=== PATIENT | female | born 1965 | race Hispanic/Latino ===

== ENCOUNTER 2018-01-22 19:57 | Observation (INO) | payer OTHER, SELFPAY ==
[2018-01-22] MEDS ORDERED: Albuterol-Ipratrop 3 mg / 0.5 (3 ml) UD IH STA (20:06)
--- NOTE | 2018-01-22 20:15 | ED PDOC ---
Arrival/HPI - General Chief Complaint: Shortness Of Breath Time Seen by Provider: 01/22/18 19:59 Historian: Patient, EMS - History of Present Illness Time/Duration: 1 hour Symptom Onset: Sudden Symptom Course: Improving Severity Level: Moderate Activities at Onset: Rest Associated Symptoms (Text): 01/22/18 20:11 Patient reports that she was getting ready to go to bed and lie down and go to sleep and developed acute shortness of breath. There is a history of asthma. She took her inhaler with minimal relief. She then called 911 and presents to the emergency department. She denies chest pain. No cough congestion or URI. No fever or chills. No abdominal pain nausea or vomiting. She was seen in the emergency department for similar complaints approximately 3 weeks ago. Past Medical History - Cardiac Hx Cardiac Disorders: Yes Hx Hypertension: Yes - Pulmonary Hx Respiratory Disorders: Yes Hx Asthma: Yes - Endocrine/Metabolic Hx Endocrine Disorders: Yes Hx Diabetes Mellitus Type 2: Yes Hx Hypothyroidism: Yes - Psychiatric Hx Substance Use: No - Anesthesia Hx Anesthesia: Yes Hx Anesthesia Reactions: No Family/Social History - Physician Review Nursing Documentation Reviewed: Yes Family/Social History: Unknown Family HX Smoking Status: Never Smoked Hx Alcohol Use: No Hx Substance Use: No Allergies/Home Meds Allergies/Adverse Reactions: Allergies aspirin Allergy (Verified 01/22/18 19:59) RASH Penicillins Allergy (Verified 01/22/18 19:59) RASH Home Medications: Home Meds Medication Instructions Recorded Confirmed metFORMIN [glucOPHAGE] 2 tab PO BID 01/22/18 01/22/18 Review of Systems - Physician Review All systems were reviewed & negative as marked: Yes - Review of Systems Constitutional: Normal ENT: Normal Respiratory: SOB. absent: Cough, Sputum Cardiovascular: Normal. absent: Chest Pain, Palpitations, Syncope Gastrointestinal: absent: Abdominal Pain, Diarrhea, Vomiting Genitourinary Female: Normal Neurological: Normal Physical Exam Vital Signs Temp Pulse Resp BP Pulse Ox 01/22/18 22:02 124 H 22 130/67 98 01/22/18 20:01 97.5 F L 121 H 20 136/77 100 Temperature: Afebrile Blood Pressure: Normal Pulse: Tachycardic Respiratory Rate: Normal Appearance: Positive for: Well-Appearing, Non-Toxic, Comfortable Pain Distress: None Mental Status: Positive for: Alert and Oriented X 3 - Systems Exam Head: Present: Atraumatic, Normocephalic Pupils: Present: PERRL Extroacular Muscles: Present: EOMI Conjunctiva: Present: Normal Mouth: Present: Moist Mucous Membranes Pharnyx: No: ERYTHEMA, EXUDATE, TONSILS ENLARGED Neck: Present: Normal Range of Motion Respiratory/Chest: Present: Clear to Auscultation, Good Air Exchange, Decreased Breath Sounds. No: Respiratory Distress, Accessory Muscle Use, Wheezes, Rales, Retracting, Rhonchi, Tachypneic Cardiovascular: Present: Regular Rate and Rhythm, Normal S1, S2, Tachycardic. No: Murmurs Abdomen: No: Tenderness, Distention, Peritoneal Signs, Rebound, Guarding Upper Extremity: Present: Normal Inspection. No: Cyanosis, Edema Lower Extremity: Present: Normal Inspection. No: Edema, CALF TENDERNESS Neurological: Present: GCS=15, CN II-XII Intact, Speech Normal, Motor Func Grossly Intact Skin: Present: Warm, Dry, Normal Color. No: Rashes Psychiatric: Present: Alert, Oriented x 3, Normal Insight, Normal Concentration Medical Decision Making ED Course and Treatment: 01/22/18 20:21 EKG shows sinus tachycardia rate approximately 115 with poor R-wave progression and no acute ST or T-wave changes 01/22/18 21:07 Patient reports that the initial DuoNeb did help her breathing. Her lungs remained clear with no wheezing. She is requesting an additional treatment. Additional albuterol has been ordered for her. He also reports that she is always tachycardic. 01/22/18 21:39 Patient continues to complain of shortness of breath, though her lung sounds are clear and her pulse oximetry is 100% on room air. Her x-ray shows no acute findings. Her BNP and d-dimer were normal. She is now stating that her chest feels tight and as if someone were sitting on it. She reports that this is the feeling she is having since she first became short of breath. There is a history of diabetes and hypertension. No cardiac history. She is a never smoker. The second treatment did not help her much. She is allergic to aspirin. We will try nitroglycerin and make arrangements for telemetry observation. 01/22/18 21:57 No change with nitroglycerin. 01/22/18 22:02 Dr. Acuña, who covers for , refers to the hospitalist for admission. I spoke with the medical transcription radiology and the house physician for telemetry observation. - Lab Interpretations Lab Results: 01/22/18 20:20 01/22/18 20:20 Lab Results 01/22/18 20:20: Sodium 136, Potassium 3.2 L, Chloride 97 L, Carbon Dioxide 22, Anion Gap 19, BUN 24 H, Creatinine 0.9, Est GFR ( Amer) > 60, Est GFR ( Non-Af Amer) > 60, Random Glucose 242 H, Calcium 9.3, Magnesium 1.3 L, Total Bilirubin 0.7, AST 38 H D, ALT 49, Alkaline Phosphatase 66, Lactate Dehydrogenase 464, Total Creatine Kinase 68, Troponin I < 0.01, NT-Pro-B Natriuret Pep 27.9, Total Protein 7.3, Albumin 4.5, Globulin 2.8, Albumin/ Globulin Ratio 1.6 01/22/18 20:20: D-Dimer, Quantitative < 200 01/22/18 20:20: WBC 11.0, RBC 4.35, Hgb 13.0, Hct 38.0, MCV 87.4, MCH 29.9, MCHC 34.2, RDW 13.3, Plt Count 366, MPV 9.6, Gran % 43.8 L, Lymph % (Auto) 45.7 H, Monroe % (Auto) 8.0 H, Eos % (Auto) 2.1, Baso % (Auto) 0.4, Gran # 4.81, Lymph # (Auto) 5.0 H, Monroe # (Auto) 0.9 H, Eos # (Auto) 0.2, Baso # (Auto) 0.04 - RAD Interpretation Radiology Orders: 01/22/18 20:07 CHEST PORTABLE [RAD] Stat Chest 1 view shows no infiltrate effusion or cardiomegaly. Payroll Benefits Clerk: ED Physician - Medication Orders Current Medication Orders: Discontinued Medications Albuterol Sulfate (Albuterol 0.083% Inhal Lissy (2.5 Mg/3 Ml) Ud) 2.5 mg INH STAT STA Stop: 01/22/18 21:08 Last Admin: 01/22/18 21:11 Dose: 2.5 mg Albuterol/Ipratropium (Duoneb 3 Mg/0.5 Mg (3 Ml) Ud) 3 ml IH STAT STA Stop: 01/22/18 20:07 Last Admin: 01/22/18 20:11 Dose: 3 ml Nitroglycerin (Nitrostat Sl Tab) 0.4 mg SL STAT STA Stop: 01/22/18 21:40 Last Admin: 01/22/18 21:42 Dose: 0.4 mg Potassium Chloride (K-Dur 20 Meq Er Tab) 20 meq PO STAT STA Stop: 01/22/18 21:05 Last Admin: 01/22/18 21:11 Dose: 20 meq Disposition/Present on Arrival - Present on Arrival Any Indicators Present on Arrival: No History of DVT/PE: No History of Uncontrolled Diabetes: No Urinary Catheter: No History of Decub. Ulcer: No History Surgical Site Infection Following: None - Disposition Have Diagnosis and Disposition been Completed?: Yes Diagnosis: Chest pain, Dyspnea, Tachycardia, Hypokalemia, Hyperglycemia, Hyperglycemia due to type 2 diabetes mellitus Disposition: HOSPITALIZED Disposition Time: 22:03 Patient Plan: Observation, Telemetry Patient Problems: Current Active Problems Problem Status Onset Chest pain Acute Dyspnea Acute Condition: GOOD Discharge Instructions (ExitCare): Chest Pain (ED) Referrals: Nita Hobbs DO [Primary Care Provider] - Follow up with primary Forms: [facility] ([place])
[2018-01-22 20:42] LABS: ALB/GLOB RATIO 1.6 (1.1-1.8); ALBUMIN 4.5 g/dL (3.0-4.8); ALT/SGPT 49 U/L (7-56); AST/SGOT 38 U/L (14-36); BLOOD UREA NITROGEN 24 mg/dL (7-21); CALCIUM 9.3 mg/dL (8.4-10.5); GFR AFRICAN-AMERICAN > 60; GFR NON-AFRICAN AMERICAN > 60
[2018-01-22 20:52] LABS: B-TYPE NATRIURETIC PEPTIDE 27.9 pg/mL (0-450); TROPONIN I < 0.01 ng/mL
[2018-01-22 20:55] LABS: BASO # 0.04 K/mm3 (0.0-2.0); BASO % 0.4 % (0.0-3.0); EOS # 0.2 (0.0-0.7); EOS % 2.1 % (1.5-5.0); GRAN # 4.81 (1.4-6.5); GRAN % 43.8 % (50.0-68.0); LYMPH % 45.7 % (22.0-35.0); MEAN CELL VOLUME 87.4 fl (80.0-105.0); MEAN CORPUSCULAR HEMOGLOBIN 29.9 pg (25.0-35.0); MEAN CORPUSCULAR HGB CONC 34.2 g/dl (31.0-37.0); MEAN PLATELET VOLUME 9.6 fl (7.0-11.0); MONO # 0.9 (0.1-0.6); RBC 4.35 10^6/uL (3.5-6.1); RED CELL DISTRIBUTION WIDTH 13.3 % (11.5-14.5)
[2018-01-22] MEDS ORDERED: Potassium Chloride 20 mEq ER Tab PO STA (21:04)
[2018-01-22] MEDS ORDERED: Albuterol 0.083% Inhal Sol (2.5 mg/3 mL) UD INH STA (21:07)
[2018-01-22] MEDS ORDERED: Nitroglycerin 2% Ointment Foilpak UD TOP STA (22:05)
[2018-01-22] MEDS ORDERED: Nitroglycerin 2% Ointment Foilpak UD TOP ONE (22:06)
[2018-01-22] MEDS ORDERED: Potassium Chloride 40 mEq/30 ml LIQ UD PO ONE (23:09)
[2018-01-22] MEDS ORDERED: Levalbuterol 1.25 MG/3 ML Inhal Soln UD IH PRN (23:44)
[2018-01-23] MEDS ORDERED: Magnesium 2 gm/50 ml NS 2 GM/50 ML BAG IVPB ONE (00:09)
--- NOTE | 2018-01-23 00:51 | CP.PCM.HP ---
<Samuel Grider - Last Filed: 01/23/18 02:33> History of Present Illness - History of Present Illness History of Present Illness: PGY-1 Admission History and Physical for Dr. Cuadra Ms. Smith is a 52 year old female with PMH of asthma, DM2, HTN, Lois's thyroiditis, and R knee osteoarthritis who presented to ED with chest pain and what she believed was an asthma exacerbation. She takes albuterol nebulizers. She states that she feels a pressure-type pain in her mid-sternal chest. The chest pain is exacerbated by breathing in and improved with nitroglycerin ointment. Patient admits to a history of having an elevated heart rate. She states that she's been told she has a high heart rate since she was a child. She states that in 2015 they "went down and looked at my heart with a camera but didn't find anything." She admits to some mild shortness of breath at rest but her chest tightness bothers her more currently. She denies fever, chills, headache, dizziness, palpitations, cough, wheezing, nausea, vomiting, abdominal pain, and diarrhea. PMH: type 2 diabetes, HTN, Lois's thyroiditis, R knee osteoarthritis Medications: see EMR, RN confirmed Allergies: Aspirin, penicillin PSHx: Total R knee replacement Fam Hx: denies Social Hx: denies tobacco, alcohol, or drug use. Currently lives independently with family PMD: Dr. Hobbs Present on Admission - Present on Admission Any Indicators Present on Admission: No History of DVT/PE: No History of Uncontrolled Diabetes: No Urinary Catheter: No Decubitus Ulcer Present: No Review of Systems - Review of Systems Review of Systems: A 12 point ROS was reviewed with patient and negative except as stated in HPI Past Patient History - Past Social History Smoking Status: Never Smoked - CARDIAC Hx Cardiac Disorders: Yes Hx Hypertension: Yes - PULMONARY Hx Respiratory Disorders: Yes Hx Asthma: Yes - NEUROLOGICAL Hx Neurological Disorder: No - HEENT Hx HEENT Problems: No - RENAL Hx Chronic Kidney Disease: No - ENDOCRINE/METABOLIC Hx Endocrine Disorders: Yes Hx Diabetes Mellitus Type 2: Yes Hx Hypothyroidism: Yes Other/Comment: Lois disease - HEMATOLOGICAL/ONCOLOGICAL Hx AIDS: No - INTEGUMENTARY Hx Dermatological Problems: No - MUSCULOSKELETAL/RHEUMATOLOGICAL Hx Fractures: Yes (right knee) - GASTROINTESTINAL Hx Gastrointestinal Disorders: No - GENITOURINARY/GYNECOLOGICAL Hx Genitourinary Disorders: No - PSYCHIATRIC Hx Psychophysiologic Disorder: Yes Hx Anxiety: Yes - SURGICAL HISTORY Hx Surgeries: Yes Other/Comment: Right knee repair - ANESTHESIA Hx Anesthesia: Yes Hx Anesthesia Reactions: No Meds Allergies/Adverse Reactions: Allergies Allergy/AdvReac Type Severity Reaction Status Date / Time aspirin Allergy RASH Verified 01/22/18 19:59 Penicillins Allergy RASH Verified 01/22/18 19:59 Physical Exam - Constitutional Appears: No Acute Distress Additional comments: In general, she appears pleasant, alert and awake without acute distress - Head Exam Head Exam: ATRAUMATIC, NORMAL INSPECTION, NORMOCEPHALIC - Eye Exam Eye Exam: EOMI, Normal appearance, PERRL - ENT Exam ENT Exam: Mucous Membranes Moist - Neck Exam Neck exam: Positive for: Normal Inspection - Respiratory Exam Respiratory Exam: Clear to Auscultation Bilateral. absent: Accessory Muscle Use , Chest Wall Tenderness, Rales, Rhonchi, Wheezes, Respiratory Distress - Cardiovascular Exam Cardiovascular Exam: REGULAR RHYTHM, RRR, Rubs, +S1, +S2. absent: Diastolic murmur, Gallop, +S4, Systolic Murmur - GI/Abdominal Exam GI & Abdominal Exam: Normal Bowel Sounds, Soft. absent: Distended, Guarding, Rebound - Extremities Exam Extremities exam: Positive for: normal inspection. Negative for: calf tenderness, pedal edema - Neurological Exam Neurological exam: Alert, Oriented x3 - Psychiatric Exam Psychiatric exam: Normal Affect, Normal Mood - Skin Skin Exam: Dry, Intact, Normal Color, Warm Results - Vital Signs Recent Vital Signs: Last Vital Signs Temp 97.5 F L 01/22/18 20:01 Pulse 125 H 01/22/18 23:05 Resp 20 01/22/18 23:05 BP 132/79 01/22/18 23:05 Pulse Ox 97 01/22/18 23:05 - Labs Result Diagrams: 01/22/18 20:20 01/22/18 20:20 Assessment & Plan - Assessment and Plan (Free Text) Assessment: Ms. Smith is a 52 year old female with PMH of asthma, DM2, HTN, Lois's thyroiditis, and R knee osteoarthritis who presented with chest pain and SOB. She is being admitted for evaluation and treatment of chest pain to rule out acute coronary syndrome and asthma exacerbation. 1. Chest pain -Will rule out acute coronary syndrome -CXR reviewed by myself, no signs of consolidation, pulmonary congestion, or other acute etiology -ECG with sinus tachycardia at rate of 117 with poor progression of R waves noted -Repeat ECG in AM -Initial troponin negative, continue to trend Q6h x 2 -Echo ordered -Nitroglycerin ointment Q6h -Start Lopressor one stat dose of 25 mg given and then 25 mg BID -Lopressor will provide a cardioprotective effect and help with the sinus tachycardia -Cardiology consulted 2. Asthma exacerbation -Xopenex by nebulizer Q6 scheduled and PRN ordered 3. Electrolyte abnormalities -Hypokalemia and hypomagnesemia -Repleted PO KCl and IV MgSO4 -Continue to monitor, will repeat in AM -Replete as needed 4. Hx of Lois's thyroiditis -TSH, T3, T4 ordered 5. Hx of Type 2 diabetes mellitus -Hold metformin -ISS and accuchecks ACHS -Hemoglobin A1c pending GI/DVT Prophylaxis: Protonix and heparin Case and plan reviewed with Dr. Cuadra attending. Samuel Grider DO IM Resident PGY-1 <Kia Cuadra - Last Filed: 01/23/18 02:37> Results - Vital Signs Recent Vital Signs: Last Vital Signs Temp 97.5 F L 01/22/18 20:01 Pulse 125 H 01/23/18 02:00 Resp 20 01/22/18 23:05 BP 132/79 01/22/18 23:05 Pulse Ox 97 01/22/18 23:05 - Labs Result Diagrams: 01/22/18 20:20 01/22/18 20:20 Attending/Attestation - Attestation I have personally seen and examined this patient.: Yes I have fully participated in the care of the patient.: Yes I have reviewed all pertinent clinical information: Yes Notes (Text): 01/23/18 02:34 Patient seen with resident by bedside. Agree with assessment and plan of treatment.
[2018-01-23] MEDS ORDERED: Nitroglycerin 2% Ointment Foilpak UD TOP SCH ×2 (01:20)
[2018-01-23] MEDS: Levalbuterol 1.25 MG/3 ML Inhal Soln UD IH SCH ×4 (02:00→21:25)
[2018-01-23 04:10] VITALS: BMI 33.5
[2018-01-23] MEDS: Pantoprazole 40 mg EC Tab PO SCH (05:10)
[2018-01-23 07:10] LABS: BASO # 0.02 K/mm3 (0.0-2.0); BASO % 0.2 % (0.0-3.0); GRAN # 7.48 (1.4-6.5); GRAN % 79.6 % (50.0-68.0); HEMOGLOBIN 12.4 g/dL (12.0-16.0); LYMPH # 1.5 (1.2-3.4); LYMPH % 16.4 % (22.0-35.0); MEAN CELL VOLUME 87.3 fl (80.0-105.0); MEAN CORPUSCULAR HEMOGLOBIN 30.2 pg (25.0-35.0); MEAN CORPUSCULAR HGB CONC 34.5 g/dl (31.0-37.0); MEAN PLATELET VOLUME 9.5 fl (7.0-11.0); MONO # 0.4 (0.1-0.6); MONO % 3.8 % (1.0-6.0); RBC 4.11 10^6/uL (3.5-6.1); RED CELL DISTRIBUTION WIDTH 13.6 % (11.5-14.5); WHITE BLOOD COUNT 9.4 10^3/ul (4.5-11.0)
[2018-01-23 07:26] LABS: LDL CHOLESTEROL 97 mg/dL (0-129)
[2018-01-23 07:32] LABS: FREE T4 1.31 ng/dL (0.78-2.19)
[2018-01-23 07:33] LABS: ALB/GLOB RATIO 1.5 (1.1-1.8); ALBUMIN 4.3 g/dL (3.0-4.8); ALT/SGPT 52 U/L (7-56); AST/SGOT 26 U/L (14-36); BLOOD UREA NITROGEN 16 mg/dL (7-21); CALCIUM 9.4 mg/dL (8.4-10.5); GFR AFRICAN-AMERICAN > 60; GFR NON-AFRICAN AMERICAN > 60; HDL CHOLESTEROL 59 mg/dL (29-60)
[2018-01-23] MEDS: Insulin Lispro (humaLOG) MEDIUM Coverage SC SCH ×4 (07:38→21:49)
[2018-01-23 07:46] LABS: T3 1.14 ng/mL (0.97-1.69)
--- NOTE | 2018-01-23 09:20 | CARD ---
APPROVED REPORT EKG Measurement Heart [id number] <Conclusion> Sinus tachycardia Q in lll
--- NOTE | 2018-01-23 09:30 | CARD ---
APPROVED REPORT EKG Measurement Heart [id number] <Conclusion> Normal sinus rhythm Q in lll Normal ECG No change
--- NOTE | 2018-01-23 09:48 | RAD ---
HISTORY: Shortness of breath. COMPARISON: No prior. FINDINGS: LUNGS: No active pulmonary disease. PLEURA: No significant pleural effusion identified, no pneumothorax apparent. CARDIOVASCULAR: Normal. OSSEOUS STRUCTURES: No significant abnormalities. VISUALIZED UPPER ABDOMEN: Normal. OTHER FINDINGS: None. IMPRESSION: No active disease.
[2018-01-23] MEDS ORDERED: Enoxaparin 40 mg Syringe SC SCH (10:00)
[2018-01-23] MEDS ORDERED: Nitroglycerin 2% Ointment Foilpak UD TOP PRN (11:16)
[2018-01-23 13:33] VITALS: RESP 20
--- NOTE | 2018-01-23 20:04 | CON ---
DATE: 01/23/2018 CARDIOLOGY CONSULTATION REASON FOR CONSULTATION: Shortness of breath. HISTORY OF PRESENT ILLNESS: Patient is a 52-year-old female who has history of hypertension, diabetes mellitus, history of bronchial asthma, presented because of shortness of breath which she attributed to asthma. Patient took her inhaler with minimal relief and called 911. The patient denies any resistant chest pain. The patient stated that she was evaluated by her lock setter in 2014 and underwent a stress test which was negative. SOCIAL HISTORY: Patient is a nonsmoker, nondrinker. She has a dog as a pet at home; she says he does not shed his hair. REVIEW OF SYSTEMS: No nausea or vomiting. No fever or chills. No dizziness or syncope. MEDICATIONS: Heparin 5000 units every 12 hours, Lipitor 40 mg once a day, Lopressor 25 mg twice a day, Protonix 40 mg p.o. once a day, Xopenex inhaler every 2 hours p.r.n PAST MEDICAL HISTORY: Hypertension, diabetes mellitus, and bronchial asthma. PHYSICAL EXAMINATION: GENERAL: The patient is a middle-aged female who does not appear to be in acute distress. VITAL SIGNS: Blood pressure 124/69, heart rate 90, respirations 18, temperature 98.7. HEENT: Normocephalic. NECK: No JVD. CHEST: Clear. HEART: S1 and S2 are regular. ABDOMEN: Soft. EXTREMITIES: No edema. No calf tenderness. DIAGNOSTIC STUDIES: EKG yesterday revealed sinus tachycardia at the rate of 117. Today's EKG revealed normal sinus rhythm at the rate of 95. Chest x-ray revealed no active disease. LABORATORY DATA: Today's hemoglobin and hematocrit are 12.4 and 35.9, white count and platelet count are within normal limits. SMA-7: Today's sodium 138, potassium 4.5, chloride 99, CO2 of 28, glucose 118, BUN 16, creatinine 0.7. Three sets of troponins are negative. TSH level, free T4, and total T3 are within normal limits. Lipid profile is within normal limits. D-dimer is within normal limits. ASSESSMENT: 1. Consider exacerbation of bronchial asthma. 2. Hypertension. 3. Uncontrolled diabetes mellitus. RECOMMENDATIONS: Case was discussed with Dr. Banks. Continue current subcutaneous heparin 5000 units every 12 hours, continue Lipitor at 40 mg once a day, and discontinue Lopressor for now. Continue Xopenex inhaler. I would review the echocardiographic study performed today. William Mcclendon MD
[2018-01-24 01:14] VITALS: O2SAT 98
[2018-01-24] MEDS: Levalbuterol 1.25 MG/3 ML Inhal Soln UD IH SCH ×2 (01:35→07:11)
[2018-01-24] MEDS: Pantoprazole 40 mg EC Tab PO SCH (05:01)
[2018-01-24 05:50] VITALS: BP 138/93; PULSE 101; TEMP 98.2
[2018-01-24] MEDS: Insulin Lispro (humaLOG) MEDIUM Coverage SC SCH (08:18)
--- NOTE | 2018-01-24 08:37 | CARD ---
APPROVED REPORT EXAM: Two-dimensional and M-mode echocardiogram with Doppler and color Doppler. Other Information Quality : FairRhythm : INDICATION Chest Pain 2D DIMENSIONS IVSd0.8 (0.7-1.1cm)LVDd4.8 (3.9-5.9cm) PWd0.9 (0.7-1.1cm)LVDs3.1 (2.5-4.0cm) FS (%) 34.9 %LVEF (%)64.0 (>50%) M-Mode DIMENSIONS Left Atrium (MM)2.80 (2.5-4.0cm)Aortic Root3.20 (2.2-3.7cm) Aortic Cusp Exc.1.80 (1.5-2.0cm) Aortic Valve AoV Peak Nanlurqa837.0cm/s Mitral Valve MV E Cmmiaibr15.8cm/sMV A Kddtdbhg523.0cm/sE/A ratio0.9 TDI Lateral E' Peak V11.10cm/sMedial E' Peak V10.60cm/sE/Lateral E'8.3 E/Medial E'8.7 Tricuspid Valve TR Peak [id number]/sRAP [id number] Peak Gr.48mmHg [id number] LEFT VENTRICLE The left ventricle is normal size. There is normal left ventricular wall thickness. The left ventricular function is normal. The left ventricular ejection fraction is within the normal range. There is normal LV segmental wall motion. RIGHT VENTRICLE The right ventricle is normal size. ATRIA The left atrium size is normal. The right atrium size is normal. The interatrial septum is intact with no evidence for an atrial septal defect. AORTIC VALVE The aortic valve is normal in structure. MITRAL VALVE The mitral valve is normal in structure. Mitral regurgitation is trace. TRICUSPID VALVE The tricuspid valve is normal in structure. There is mild tricuspid regurgitation. There is mild-moderate pulmonary hypertension. PULMONIC VALVE The pulmonic valve is not well visualized. GREAT VESSELS The aortic root is normal in size. PERICARDIAL EFFUSION There is no pericardial effusion. <Conclusion> The left ventricle is normal size. The left ventricle is normal size. The left ventricular function is normal. Mitral regurgitation is trace. There is mild tricuspid regurgitation. There is mild-moderate pulmonary hypertension.
--- NOTE | 2018-01-24 12:34 | CP.PCM.DIS ---
<Sandra Richards L - Last Filed: 01/24/18 16:42> Provider - Provider Date of Admission: 01/22/18 22:03 Attending physician: Avinash Neal MD Primary care physician: Nita Hobbs DO Consults: Cardiology: Dr. Mcclendon Time Spent in preparation of Discharge (in minutes): 45 Diagnosis - Discharge Diagnosis (1) Atypical chest pain Status: Acute (2) Shortness of breath Status: Acute (3) Hypomagnesemia Status: Resolved (4) Hypokalemia Status: Resolved (5) Uncontrolled diabetes mellitus Status: Acute Hospital Course - Lab Results Lab Results: Most Recent Lab Values WBC 9.4 10^3/ul (4.5-11.0) 01/23/18 06:00 RBC 4.11 10^6/uL (3.5-6.1) 01/23/18 06:00 Hgb 12.4 g/dL (12.0-16.0) 01/23/18 06:00 Hct 35.9 % (36.0-48.0) L 01/23/18 06:00 MCV 87.3 fl (80.0-105.0) 01/23/18 06:00 MCH 30.2 pg (25.0-35.0) 01/23/18 06:00 MCHC 34.5 g/dl (31.0-37.0) 01/23/18 06:00 RDW 13.6 % (11.5-14.5) 01/23/18 06:00 Plt Count 380 10^3/uL (120.0-450.0) 01/23/18 06:00 MPV 9.5 fl (7.0-11.0) 01/23/18 06:00 Gran % 79.6 % (50.0-68.0) H 01/23/18 06:00 Lymph % (Auto) 16.4 % (22.0-35.0) L 01/23/18 06:00 [place] % (Auto) 3.8 % (1.0-6.0) 01/23/18 06:00 Eos % (Auto) 0.0 % (1.5-5.0) L 01/23/18 06:00 Baso % (Auto) 0.2 % (0.0-3.0) 01/23/18 06:00 Gran # 7.48 (1.4-6.5) H 01/23/18 06:00 Lymph # (Auto) 1.5 (1.2-3.4) 01/23/18 06:00 [place] # (Auto) 0.4 (0.1-0.6) 01/23/18 06:00 Eos # (Auto) 0.0 (0.0-0.7) 01/23/18 06:00 Baso # (Auto) 0.02 K/mm3 (0.0-2.0) 01/23/18 06:00 D-Dimer, Quantitative < 200 ng/mL (0-243) 01/22/18 20:20 Sodium 138 mmol/L (132-148) 01/23/18 06:00 Potassium 4.5 mmol/L (3.6-5.0) 01/23/18 06:00 Chloride 99 mmol/L (98-107) 01/23/18 06:00 Carbon Dioxide 28 mmol/L (21-33) 01/23/18 06:00 Anion Gap 16 (10-20) 01/23/18 06:00 BUN 16 mg/dL (7-21) 01/23/18 06:00 Creatinine 0.7 mg/dl (0.7-1.2) 01/23/18 06:00 Est GFR ( Amer) > 60 01/23/18 06:00 Est GFR (Non-Af Amer) > 60 01/23/18 06:00 POC Glucose (mg/dL) 196 mg/dL (65-110) H 01/24/18 07:32 Random Glucose 218 mg/dL (70-110) H 01/23/18 06:00 Hemoglobin A1c 9.4 % (4.2-6.5) H 01/23/18 06:00 Calcium 9.4 mg/dL (8.4-10.5) 01/23/18 06:00 Magnesium 1.9 mg/dL (1.7-2.2) 01/23/18 06:00 Total Bilirubin 0.9 mg/dL (0.2-1.3) 01/23/18 06:00 AST 26 U/L (14-36) 01/23/18 06:00 ALT 52 U/L (7-56) 01/23/18 06:00 Alkaline Phosphatase 57 U/L (38-126) 01/23/18 06:00 Lactate Dehydrogenase 464 U/L (333-699) 01/22/18 20:20 Total Creatine Kinase 68 U/L (35-230) 01/22/18 20:20 Troponin I < 0.01 ng/mL 01/23/18 07:30 NT-Pro-B Natriuret Pep 27.9 pg/mL (0-450) 01/22/18 20:20 Total Protein 7.1 g/dL (5.8-8.3) 01/23/18 06:00 Albumin 4.3 g/dL (3.0-4.8) 01/23/18 06:00 Globulin 2.8 gm/dL 01/23/18 06:00 Albumin/Globulin Ratio 1.5 (1.1-1.8) 01/23/18 06:00 Triglycerides 94 mg/dL (35-160) 01/23/18 06:00 Cholesterol 176 mg/dL (130-200) 01/23/18 06:00 LDL Cholesterol Direct 97 mg/dL (0-129) 01/23/18 06:00 HDL Cholesterol 59 mg/dL (29-60) 01/23/18 06:00 Free T4 1.31 ng/dL (0.78-2.19) 01/23/18 06:00 Total T3 1.14 ng/mL (0.97-1.69) 01/23/18 06:00 TSH 3rd Generation 0.68 mIU/mL (0.46-4.68) 01/23/18 06:00 - Hospital Course Hospital Course: Patient is a 52 year old female with PMH of asthma, DM2, HTN, Lois's thyroiditis, and R knee osteoarthritis who presented to ED with chest pain and shortness of breath. EKG with no acute ST/T wave changes, troponins x2 negative. Patient was found to have electrolyte abnormalities which were repleted. Patient was admitted for observation on telemetry. D-dimer was less than 200. ECHO with normal EF (please see report for full details). Patient signed out AMA and refused to wait for further cardiology recommendations. Patient was explained that the risks of leaving against medical advice include, but not limited to, heart attack, breathing difficulties, respiratory failure, and . Patient was encouraged to follow up with PMD and private terra cotta setter. - Date & Time of H&P Date of H&P: 01/23/18 Time of H&P: 00:04 Discharge Exam - Head Exam Additional comments: Patient signed out AMA. Did not examine the patient. Discharge Plan - Follow Up Plan Condition: GOOD Disposition: AGAINST MEDICAL ADVICE Additional Instructions: Patient to follow up with primary medical doctor within one week. Please take your medications as prescribed. Follow up with terra cotta setter outpatient to discuss the results of your echocardiogram. Return to ED if symptoms return. Referrals: Nita Hobbs DO [Primary Care Provider] - <Hilda Banks R - Last Filed: 01/24/18 18:35> Provider - Provider Date of Admission: 01/22/18 22:03 Attending physician: Avinash Neal MD Primary care physician: Nita Hobbs DO Hospital Course - Lab Results Lab Results: Most Recent Lab Values WBC 9.4 10^3/ul (4.5-11.0) 01/23/18 06:00 RBC 4.11 10^6/uL (3.5-6.1) 01/23/18 06:00 Hgb 12.4 g/dL (12.0-16.0) 01/23/18 06:00 Hct 35.9 % (36.0-48.0) L 01/23/18 06:00 MCV 87.3 fl (80.0-105.0) 01/23/18 06:00 MCH 30.2 pg (25.0-35.0) 01/23/18 06:00 MCHC 34.5 g/dl (31.0-37.0) 01/23/18 06:00 RDW 13.6 % (11.5-14.5) 01/23/18 06:00 Plt Count 380 10^3/uL (120.0-450.0) 01/23/18 06:00 MPV 9.5 fl (7.0-11.0) 01/23/18 06:00 Gran % 79.6 % (50.0-68.0) H 01/23/18 06:00 Lymph % (Auto) 16.4 % (22.0-35.0) L 01/23/18 06:00 [place] % (Auto) 3.8 % (1.0-6.0) 01/23/18 06:00 Eos % (Auto) 0.0 % (1.5-5.0) L 01/23/18 06:00 Baso % (Auto) 0.2 % (0.0-3.0) 01/23/18 06:00 Gran # 7.48 (1.4-6.5) H 01/23/18 06:00 Lymph # (Auto) 1.5 (1.2-3.4) 01/23/18 06:00 [place] # (Auto) 0.4 (0.1-0.6) 01/23/18 06:00 Eos # (Auto) 0.0 (0.0-0.7) 01/23/18 06:00 Baso # (Auto) 0.02 K/mm3 (0.0-2.0) 01/23/18 06:00 D-Dimer, Quantitative < 200 ng/mL (0-243) 01/22/18 20:20 Sodium 138 mmol/L (132-148) 01/23/18 06:00 Potassium 4.5 mmol/L (3.6-5.0) 01/23/18 06:00 Chloride 99 mmol/L (98-107) 01/23/18 06:00 Carbon Dioxide 28 mmol/L (21-33) 01/23/18 06:00 Anion Gap 16 (10-20) 01/23/18 06:00 BUN 16 mg/dL (7-21) 01/23/18 06:00 Creatinine 0.7 mg/dl (0.7-1.2) 01/23/18 06:00 Est GFR ( Amer) > 60 01/23/18 06:00 Est GFR (Non-Af Amer) > 60 01/23/18 06:00 POC Glucose (mg/dL) 196 mg/dL (65-110) H 01/24/18 07:32 Random Glucose 218 mg/dL (70-110) H 01/23/18 06:00 Hemoglobin A1c 9.4 % (4.2-6.5) H 01/23/18 06:00 Calcium 9.4 mg/dL (8.4-10.5) 01/23/18 06:00 Magnesium 1.9 mg/dL (1.7-2.2) 01/23/18 06:00 Total Bilirubin 0.9 mg/dL (0.2-1.3) 01/23/18 06:00 AST 26 U/L (14-36) 01/23/18 06:00 ALT 52 U/L (7-56) 01/23/18 06:00 Alkaline Phosphatase 57 U/L (38-126) 01/23/18 06:00 Lactate Dehydrogenase 464 U/L (333-699) 01/22/18 20:20 Total Creatine Kinase 68 U/L (35-230) 01/22/18 20:20 Troponin I < 0.01 ng/mL 01/23/18 07:30 NT-Pro-B Natriuret Pep 27.9 pg/mL (0-450) 01/22/18 20:20 Total Protein 7.1 g/dL (5.8-8.3) 01/23/18 06:00 Albumin 4.3 g/dL (3.0-4.8) 01/23/18 06:00 Globulin 2.8 gm/dL 01/23/18 06:00 Albumin/Globulin Ratio 1.5 (1.1-1.8) 01/23/18 06:00 Triglycerides 94 mg/dL (35-160) 01/23/18 06:00 Cholesterol 176 mg/dL (130-200) 01/23/18 06:00 LDL Cholesterol Direct 97 mg/dL (0-129) 01/23/18 06:00 HDL Cholesterol 59 mg/dL (29-60) 01/23/18 06:00 Free T4 1.31 ng/dL (0.78-2.19) 01/23/18 06:00 Total T3 1.14 ng/mL (0.97-1.69) 01/23/18 06:00 TSH 3rd Generation 0.68 mIU/mL (0.46-4.68) 01/23/18 06:00 Attending/Attestation - Attestation I have personally seen and examined this patient.: Yes I have fully participated in the care of the patient.: Yes I have reviewed all pertinent clinical information, including history, physical exam and plan: Yes Notes (Text): Case discussed with resident. Agree with above with following additions/ changes. Patient signing out AGAINST MEDICAL ADVICE. Unable to see and examine patient prior to patient signing out AGAINST MEDICAL ADVICE. Patient is a 52-year-old female with past medical history significant for asthma , type 2 diabetes, hypertension, Lois's thyroiditis, and right knee osteoarthritis that presented to the emergency room with chest pain. Initially thought she had an asthma exacerbation. Patient was placed on nebulizer treatments. On day of admission patient was not wheezing during my exam. Patient did not appear to be an asthma exacerbation. Chest pain resolved. Chest x-ray did not show any acute abnormalities. Troponins were within normal limits. Cardiology was consult and patient was evaluated by cardiology. Per terra cotta setter Dr. Graves, patient's Lopressor was stopped. She was advised to continue her home blood pressure medicines. 2-D echo was ordered. 2-D echo per terra cotta setter showed an EF of 64%, normal left ventricular size, and normal left ventricular function. All symptoms had improved. Patient decided to sign out AGAINST MEDICAL ADVICE prior to being seen the following day. Risks were discussed with the patient. Patient was advised to follow up with primary care doctor and terra cotta setter as an outpatient. She was advised return to emergency room for further care at any time. Please see chart for full details.
== END 2018-01-24 09:22 | disposition left against medical advice (07) ==
LOC: ED 19:57 → ERH 22:03 → 2RSO 23:10
PROVIDERS: ADMIT Internal Medicine; ATTEND Internal Medicine
DX: R07.89 Other chest pain (principal); E11.65 Type 2 diabetes mellitus with hyperglycemia; E83.42 Hypomagnesemia; E87.6 Hypokalemia; I10 Essential (primary) hypertension; E06.3 Autoimmune thyroiditis; J45.909 Unspecified asthma, uncomplicated; Z96.651 Presence of right artificial knee joint
CPT/HCPCS: 36415; 71045; 80053; 80061; 82550; 82948; 83036; 83615; 83735; 83880; 84439; 84443; 84480; 84484; 85025; 85378; 93005; 93306; 94640; 99285; G0378; J1644; J3475; J3480